=== PATIENT | male | born 1995 | race Caucasian/White ===

== ENCOUNTER 2021-01-14 10:26 | Emergency (ER) | payer OTHER ==
[~2021-01-14] VITALS: Ht 167.6 cm; Wt 92.7 kg
[2021-01-14] MEDS ORDERED: LORazepam 2 mg/ml vial IV ONE (10:40)
[2021-01-14 10:54] LABS: BASOPHILS % (AUTO) 0.4 % (0-1); EOSINOPHILS % (AUTO) 0.4 % (0-6); HEMATOCRIT 47.8 % (42.0-52.0); HEMOGLOBIN 16.8 g/dl (14.0-17.9); LYMPHOCYTES # (AUTO) 1.3 X10'3 (1.1-4.8); MEAN CORPUSCULAR HEMOGLOBIN 29.7 PG (27.0-31.0); MEAN CORPUSCULAR HGB CONC 35.1 g/dL (33.0-36.5); MEAN CORPUSCULAR VOLUME 84.5 FL (78-98); MEAN PLATELET VOLUME 8.4 FL (7.4-10.4); MONOCYTES # (AUTO) 0.7 X10'3 (0-0.9); MONOCYTES % (AUTO) 7.2 % (2-12); NEUTROPHILS # (AUTO) 7.7 X10'3 (1.8-7.7); PLATELET COUNT 299 X10'3 (140-440); RED BLOOD COUNT 5.66 X10'6 (4.70-6.10); RED CELL DISTRIBUTION WIDTH 14.3 % (11.5-14.5); WHITE BLOOD COUNT 9.7 X10'3 (4.5-11.0)
[2021-01-14 11:03] LABS: ALANINE AMINOTRANSFERASE 47 U/L (12-78); ALBUMIN 4.1 G/DL (3.4-5.0); ALBUMIN/GLOBULIN RATIO 1.1 (1.1-1.5); ALKALINE PHOSPHATASE 60 IU/L (46-116); ANION GAP 6 (8-16); ASPARTATE AMINO TRANSFERASE 21 U/L (10-37); BILIRUBIN,TOTAL 0.6 MG/DL (0.1-1.0); BLOOD UREA NITROGEN 20 MG/DL (7-18); BUN/CREATININE RATIO 14.2 (5.4-32.0); CALCIUM 9.4 MG/DL (8.5-10.1); CHLORIDE 103 MMOL/L (99-107); CREATININE 1.41 MG/DL (0.60-1.10); GLUCOSE 78 MG/DL (70-104); POTASSIUM 4.2 MMOL/L (3.5-5.1); SODIUM 137 MMOL/L (135-145); TOTAL CARBON DIOXIDE 28.3 MMOL/L (24-32); TOTAL PROTEIN 7.8 G/DL (6.4-8.2); eGFR 60 ML/MIN
--- NOTE | 2021-01-14 11:33 | NUR ---
VERBAL ORDERS TO SWITCH IV ATIVIAN TO PO ATIVIAN 1 MG PO ONCE.
[2021-01-14] MEDS ORDERED: LORazepam 1 MG tablet PO ONE (11:35)
[2021-01-14 11:41] VITALS: BP 124/83
[2021-01-14 11:56] LABS: D-DIMER < 0.19 MG/L FEU (0-0.50)
== END 2021-01-14 11:53 | disposition home or self-care (01) ==
LOC: ER 10:26
DX: R07.9 Chest pain, unspecified (principal); F41.9 Anxiety disorder, unspecified; F12.10 Cannabis abuse, uncomplicated
CPT/HCPCS: 36415; 71045; 80053; 83880; 84484; 85025; 85379; 85610; 93005; 99285